=== PATIENT | female | born 1965 | race Caucasian/White ===

== ENCOUNTER 2024-03-11 06:08 | Day surgery (SDC) | payer BC ==
[2024-03-11] MEDS: Lactated Ringers 1,000 ML IV SCH (06:18)
[2024-03-11 06:21] VITALS: RESP 18
[2024-03-11] MEDS ORDERED: DIPRIVAN 200 MG/20 ML IV ONE ×2 (07:01→07:25)
[2024-03-11] MEDS ORDERED: Xylocaine-Mpf 2% 5 Ml Vial ONE (07:02)
[2024-03-11 07:53] VITALS: TEMP 97; O2SAT 99
[2024-03-11 08:13] VITALS: BP 146/85; PULSE 63
--- NOTE | 2024-03-12 10:46 | OP ---
SURGERY DATE/TIME: 03/11/2024 7041 - [id number] PREOPERATIVE DIAGNOSIS: Screening exam. POSTOPERATIVE DIAGNOSIS: Small polyp in the ascending colon. PROCEDURE: Colonoscopy with cold forceps removal and biopsy of the ascending colon polyp. SURGEON: Jace Edmonds MD. ANESTHESIA: Medications given by the anesthesia department. INDICATIONS: The patient is a 58-year-old white female presenting now for a screening colonoscopy. The patient was apprised of the risks of the procedure, the risk of perforation, phlebitis, untoward reaction to medication, bleeding, and missed lesions. The patient verbalized her understanding and desired to have the procedure performed. DESCRIPTION OF PROCEDURE AND FINDINGS: The patient was given medication by the anesthesia department. She had continuous pulse oximetry, ECG monitoring, and intermittent blood pressure monitoring, and end-tidal CO2 monitoring during the examination. She was placed in left lateral decubitus position. Digital rectal examination was performed and revealed normal anal sphincter tone and no masses. The flexible Olympus videocolonoscope was used to intubate the rectum. A view of the colon was developed sequentially to the cecum. Upon insertion and withdrawal, it was noted an approximately 0.5 cm what appeared to be possible early tubular adenoma. This was removed using 2 passes with a cold forceps biopsy instrument. No other mucosal lesions were noted and the scope was removed. The patient tolerated the procedure well and was sent to outpatient recovery room in good position. The prep was noted to be fair to good.
== END 2024-03-11 08:15 | disposition home or self-care (01) ==
LOC: SDC 06:08
PROVIDERS: ATTEND Family Medicine
DX: Z12.11 Encounter for screening for malignant neoplasm of colon (principal); D12.2 Benign neoplasm of ascending colon
CPT/HCPCS: 93005; J2704